=== PATIENT | female | born 1965 | race African-American/Black ===

== ENCOUNTER 2017-06-01 11:16 | Emergency (ER) | payer OTHER ==
[~2017-06-01] VITALS: Ht 177.8 cm; Wt 131.5 kg
[~2017-06-01 11:16] MED LIST: HYDR-3705 PO; HYDR25TA PO; OXYC-158 PO
[2017-06-01] MEDS ORDERED: OxyCODONE HCL/ACETAMINOPHEN 5-325 MG TABLET PO ONE (13:00)
[2017-06-01] MEDS ORDERED: KETOROLAC TROMETHAMINE 60 MG/2 ML VIAL IM ONE (13:00)
[2017-06-01 13:09] VITALS: BP 159/122
== END 2017-06-01 14:23 | disposition home or self-care (01) ==
LOC: EMS 11:17
DX: M17.12 Unilateral primary osteoarthritis, left knee (principal); I10 Essential (primary) hypertension
CPT/HCPCS: 29505; 73562; 96372; 99284; J1885

== ENCOUNTER 2022-05-16 08:24 | Emergency (ER) | payer OTHER ==
[~2022-05-16] VITALS: Ht 177.8 cm; Wt 145.4 kg
[~2022-05-16 08:24] MED LIST changes: -HYDR-3705 PO; +HYDR-3706 PO
[2022-05-16] MEDS ORDERED: DOXY-354 PO (09:10)
[2022-05-16] MEDS ORDERED: DOXYCYCLINE HYCLATE 100 MG TABLET PO ONE (09:15)
[2022-05-16 09:17] VITALS: BP 144/85
== END 2022-05-16 09:41 | disposition home or self-care (01) ==
LOC: EMS 08:26
DX: L02.416 Cutaneous abscess of left lower limb (principal); Z79.899 Other long term (current) drug therapy; I10 Essential (primary) hypertension; F32.9 Major depressive disorder, single episode, unspecified
CPT/HCPCS: 99283